=== PATIENT | female | born 1950 | race Caucasian/White ===

== ENCOUNTER 2018-05-23 14:25 | Outpatient (CLI) | payer MEDICARE ==
--- NOTE | 2018-05-23 17:33 | MRI ---
MRI OF BRAIN WITH AND WITHOUT CONTRAST: 05/23/18 HISTORY: Having a lip tremor, shaking of mouth since January. Essential tremor. COMPARISON: None. TECHNIQUE: MRI of brain is performed with and without intravenous gadolinium administration. Multisequential, mu ltiplanar imaging is performed. FINDINGS: No hemorrhage on the axial gradient echo sequence. Calvarium has a normal T1 marrow signal intensity. Midline brain parenchymal structures are unremarkable. There are T2 and FLAIR white matter hyperintensities due to chronic small vessel ischemic change. Sasha tral arterial flow voids are maintained. Absent restricted diffusion. Adequate aeration of the sinuses. Partial opacification of the mastoid air cells. No pathologic enhancement of the brain parenchyma. Thin section imaging of the cranial nerves demonstrates symmetric signal intensity of the V, VII/VIII cranial nerve complexes. IMPRESSION: Unremarkable pre and postcontrast brain MRI. POS: ROXANA
== END 2018-05-23 14:26 | disposition home or self-care (01) ==
LOC: SCSMRI 14:25
PROVIDERS: ATTEND Psychiatry & Neurology Neurology
DX: G25.0 Essential tremor (principal)
CPT/HCPCS: 70553; 82565

== ENCOUNTER 2024-04-01 14:47 | Outpatient (CLI) | payer MEDICARE | END 2024-04-01 14:48 | disposition home or self-care (01) | LOC: BICMAMMO 14:47 | PROVIDERS: ATTEND Family Medicine | DX: N64.89 Other specified disorders of breast (principal) | CPT/HCPCS: 76642; 77065; G0279 ==